=== PATIENT | male | born 1955 | race Caucasian/White ===

== ENCOUNTER 2017-06-03 20:36 | Emergency (ER) | payer MEDICAID ==
[~2017-06-03] VITALS: Ht 177.8 cm; Wt 86.4 kg
[2017-06-03] MEDS ORDERED: ATOR10TA84 PO (21:16)
[2017-06-03] MEDS ORDERED: TIOT185 IH (21:16)
[2017-06-03] MEDS ORDERED: LEVE500T53 PO (21:16)
[2017-06-03] MEDS ORDERED: MOME17N NASAL (21:16)
[2017-06-03] MEDS ORDERED: LISI-661 PO (21:16)
[2017-06-03] MEDS ORDERED: LABE200T PO (21:16)
[2017-06-03] MEDS ORDERED: IPRAHFA IH (21:16)
[2017-06-03] MEDS ORDERED: ISOS30TA6 PO (21:16)
[2017-06-03] MEDS ORDERED: LEVAHFA IH (21:16)
[2017-06-03] MEDS ORDERED: PANT40TA25 PO (21:16)
[2017-06-03] MEDS ORDERED: CLON-570 PO (21:16)
[2017-06-03] MEDS ORDERED: RANO500T3 PO (21:16)
[2017-06-03] MEDS ORDERED: ASPI81 PO (21:16)
[2017-06-03 21:28] LABS: BASOPHILS # (AUTO) 0.03 K/uL (0.00-0.20); BASOPHILS % (AUTO) 0.5 % (0.0-2.0); EOSINOPHILS # (AUTO) 0.27 K/uL (0.00-0.70); EOSINOPHILS % (AUTO) 3.57 % (1.0-6.0); LYMPHOCYTES # (AUTO) 2.1 K/uL (1.0-4.8); MEAN CORPUSCULAR HGB CONC 33.3 G/dL (31.0-37.0); MEAN CORPUSCULAR VOLUME 96 fL (80-100); MONOCYTES # (AUTO) 0.7 K/uL (0.1-1.0); MONOCYTES % (AUTO) 9.5 % (2.0-9.0); NEUTROPHILS # (AUTO) 4.4 K/uL (1.8-7.7); NEUTROPHILS % (AUTO) 58.5 % (40.0-70.0); PLATELET COUNT (AUTO) 183 K/uL (150-450); RED BLOOD CELL COUNT(AUTO) 4.06 MIL/uL (4.50-5.90); RED CELL DISTRIBUTION WIDTH 13.5 % (11.5-14.5)
[2017-06-03 21:42] LABS: INR 1.1 (0.9-1.1); PROTHROMBIN TIME 11.3 SEC (9.4-11.6)
[2017-06-03 21:44] LABS: ANION GAP 6 mmol/L (8-16); CARBON DIOXIDE 28 mmol/L (22-29); CHLORIDE 108 mmol/L (98-107); CREATININE 1.27 mg/dL (0.60-1.30); GLOMERULAR FILTR. RATE CALC 57 mL/min (>60); GLUCOSE,RANDOM 94 mg/dL (70-110); POTASSIUM 4.6 mmol/L (3.5-5.1); SODIUM SERUM 142 mmol/L (136-145); UREA NITROGEN, BLOOD 22 mg/dL (7-18)
[2017-06-03 21:56] LABS: B-TYPE NATRIURETIC PEPTIDE 16 pg/mL (0-100)
[2017-06-03 22:09] LABS: ALANINE AMINOTRANSFERASE 26 U/L (12-78); ALBUMIN 3.9 g/dL (3.4-5.0); ALKALINE PHOSPHATASE 62 U/L (46-116); ASPARTATE AMINOTRANSFERASE 18 U/L (15-37); BILIRUBIN,TOTAL 0.6 mg/dL (0.1-1.0); CREATINE KINASE MB 1.2 ng/mL (0-5); CREATINE KINASE, TOTAL 191 U/L (39-308); TOTAL PROTEIN, SERUM 7.1 g/dL (6.4-8.2)
[2017-06-03] MEDS ORDERED: ACETAMINOPHEN 325 MG TABLET PO PRN ×2 (22:30→23:00)
[2017-06-03] MEDS ORDERED: ONDANSETRON HCL 4 MG/2 ML VIAL IVP PRN ×2 (22:30→23:00)
[2017-06-03] MEDS ORDERED: LEVALBUTEROL TARTRATE HFA 45 MCG/PUFF 15 GM INHALER IH PRN (23:00)
[2017-06-03] MEDS ORDERED: BISACODYL 10 MG RECTAL RECTAL SUPPOSITORY PR PRN (23:00)
[2017-06-03] MEDS ORDERED: MAGNESIUM HYDROXIDE SUSPENSION 30 ML UDCUP PO PRN (23:00)
[2017-06-03] MEDS ORDERED: IPRATROPIUM BROMIDE HFA 17 MCG/PUFF 12.9 GM INHALER IH PRN (23:00)
[2017-06-03] MEDS ORDERED: ZOLPIDEM TARTRATE 5 MG TABLET PO PRN (23:00)
[2017-06-04] MEDS ORDERED: NITROGLYCERIN 2% (1 GM=INCH) PACKET TP SCH
[2017-06-04] MEDS ORDERED: HEPARIN SODIUM,PORCINE 5,000 UNITS/ML VIAL SQ SCH
[2017-06-04] MEDS ORDERED: NITROGLYCERIN 0.4 MG SUBLINGUAL TABLET #25 SL PRN (01:30)
[2017-06-04] MEDS ORDERED: MORPHINE SULFATE 2 MG/ML SYRINGE IVP PRN (02:45)
[2017-06-04 03:00] VITALS: BP 136/89
[2017-06-04] MEDS ORDERED: MOMETASONE FUROATE 50 MCG/SPRAY 17 GM NASAL SPRAY NASAL SCH (09:00)
[2017-06-04] MEDS ORDERED: LABETALOL HCL 200 MG TABLET PO SCH (09:00)
[2017-06-04] MEDS ORDERED: DOCUSATE SODIUM 100 MG CAPSULE PO SCH (09:00)
[2017-06-04] MEDS ORDERED: PANTOPRAZOLE SODIUM 40 MG DR TABLET PO SCH (09:00)
[2017-06-04] MEDS ORDERED: LevETIRAcetam 500 MG TABLET PO SCH (09:00)
[2017-06-04] MEDS ORDERED: RANOLAZINE 500 MG SR TABLET PO SCH (09:00)
[2017-06-04] MEDS ORDERED: CloNIDine HCL 0.1 MG TABLET PO SCH (09:00)
[2017-06-04] MEDS ORDERED: LISINOPRIL 10 MG TABLET PO SCH (09:00)
[2017-06-04] MEDS ORDERED: ASPIRIN 81 MG CHEWABLE TABLET PO SCH ×2 (09:00)
[2017-06-04] MEDS ORDERED: ISOSORBIDE MONONITRATE 30 MG ER TABLET PO SCH (09:00)
[2017-06-04] MEDS ORDERED: ATORVASTATIN CALCIUM 10 MG TABLET PO SCH (09:00)
== END 2017-06-04 03:29 | disposition left against medical advice (07) ==
LOC: EMS 20:40 → EEVIPCON 20:40 → EMS 06-04 03:29
DX: R07.89 Other chest pain (principal); G89.29 Other chronic pain; I25.10 Atherosclerotic heart disease of native coronary artery without angina pectoris; J44.9 Chronic obstructive pulmonary disease, unspecified; K21.9 Gastro-esophageal reflux disease without esophagitis; I10 Essential (primary) hypertension; E78.5 Hyperlipidemia, unspecified; Z79.82 Long term (current) use of aspirin; Z95.0 Presence of cardiac pacemaker; Z88.5 Allergy status to narcotic agent; Z88.8 Allergy status to other drugs, medicaments and biological substances
CPT/HCPCS: 36415; 71010; 80053; 82550; 82553; 83880; 84484; 85025; 85610; 85730; 93005; 96372; 99285; J1644